=== PATIENT | male | born 1970 | race Caucasian/White ===

== ENCOUNTER → 2018-11-13 | Outpatient (CLI) | payer BC ==
--- NOTE | 2018-11-13 14:40 | PCVCIMAG ---
APPROVED REPORT Study performed: 11/13/2018 13:46:39 EXAM: Comprehensive 2D, Doppler, and color-flow Echocardiogram Patient Location: Echo lab Room #: 2Status: routine BSA: 1.93 HR: 61 bpmBP: 150/106 mmHg Rhythm: NSR Other Information Study Quality: Good Risk Factors: Cardiac Risk Factors: HTN Indications Hypertension/HDD LVH 2D Dimensions IVSd: 10.61 (7-11mm)LVOT Diam: 21.51 (18-24mm) LVDd: 53.94 mm PWd: 8.31 (7-11mm)Ascending Ao: 37.22 (22-36mm) LVDs: 34.93 (25-40mm) Left Atrium: 36.11 (27-40mm) Aortic Root: 29.05 mm LV Single Plane 4CH: 52.71 % LV Single Plane 2CH: 53.36 % Biplane EF: 52.9 % Volumes Left Atrial Volume (Systole) Single Plane 4CH: 28.63 mLSingle Plane 2CH: 61.43 mL Biplane LA Volume: 45.00 mLLA ESV Index: 23.00 mL/m2 Aortic Valve AoV Peak Levi.: 1.20 m/s AO Peak Gr.: 5.78 mmHgLVOT Max P.61 mmHg LVOT Max V: 0.80 m/s MARLEE Vmax: 2.41 cm2 Mitral Valve E/A Ratio: 1.0 MV Decel. Time: 175.67 ms MV E Max Levi.: 0.44 m/s MV A Levi.: 0.45 m/s TDI E/Lateral E': 5.50E/Medial E': 6.29 Medial E' Levi.: 0.07 m/s Lateral E' Levi.: 0.08 m/s Pulmonary Valve PV Peak Levi.: 0.65 m/sPV Peak Gr.: 1.71 mmHg Pulmonary Vein P Vein S: 0.64 m/sP Vein A: 0.43 m/s P Vein D: 0.42 m/sP Vein A Dur.: 148.8 msec P Vein S/D Ratio: 1.52 Tricuspid Valve TR Peak Levi.: 2.03 m/s TR Peak Gr.: 16.46 mmHg TV Vmax: 0.56 m/sPA Pressure: 23.00 mmHg Left Ventricle The left ventricle is normal size. There is normal LV segmental wall motion. Borderline concentric left ventricular hypertrophy. The left ventricular systolic function is normal. LVEF is 55%. Right Ventricle The right ventricle is normal size. The right ventricular systolic function is normal. Atria The left atrium size is normal. The right atrium size is normal. Aortic Valve Aortic valve is trileaflet. The aortic valve is normal in structure and function. No aortic regurgitation is present. There is no aortic valvular stenosis. Mitral Valve The mitral valve is normal in structure. There is no mitral valve regurgitation noted. No evidence of mitral valve stenosis. Tricuspid Valve The tricuspid valve is normal in structure. Trace to mild tricuspid regurgitation with a PA pressure of 23 mmHg. Pulmonic Valve The pulmonary valve is normal in structure. There is no pulmonic valvular regurgitation. Great Vessels The aortic root is normal in size. IVC is normal in size and collapses >50% with inspiration. Pericardium There is no pericardial effusion. There is no pleural effusion. <Conclusion> The left ventricle is normal size. The left ventricular systolic function is normal. The right ventricle is normal size. The left atrium size is normal. The right atrium size is normal. Aortic valve is trileaflet. The mitral valve is normal in structure. Trace to mild tricuspid regurgitation with a PA pressure of 23 mmHg.
== END | disposition home or self-care (01) ==
LOC: PCVCIMAG 13:33
PROVIDERS: ATTEND Internal Medicine Cardiovascular Disease
DX: I07.1 Rheumatic tricuspid insufficiency (principal); I11.9 Hypertensive heart disease without heart failure
CPT/HCPCS: 93306